=== PATIENT | male | born 1950 | race Caucasian/White ===

== ENCOUNTER → 2016-12-24 | Outpatient (CLI) | payer MEDICARE, OTHER ==
[~2016-12-24] MED LIST: COLACE100 MG PO; HYDRODIURIL25 MG PO; MIRALAX17 GM PO; RIVASTIGMINE1 EAC1 TRANS; SEROQUEL50 MG PO; SINEMET 25/1001 TAB PO; SYMMETREL 100M100 MG PO; TRIAMCINOLONE L60 ML TOP
== END | disposition disaster alternative care site (69) ==
LOC: GRAD 12:46
DX: F02.80 Dementia in other diseases classified elsewhere, unspecified severity, without behavioral disturbance, psychotic disturbance, mood disturbance, and anxiety (principal); G20 Parkinson's disease; R41.0 Disorientation, unspecified; R26.81 Unsteadiness on feet

== ENCOUNTER → 2016-12-24 | Outpatient (CLI) | payer MEDICARE, BC ==
[2016-12-24 12:51] LABS: BASOPHIL # 0.1 K/uL (0.0-0.2); BASOPHIL % 0.4 %; EOSINOPHIL # 0.5 K/uL (0.0-0.5); EOSINOPHIL % 3.7 %; HEMATOCRIT 36.7 % (37.0-53.0); HEMOGLOBIN 12.7 g/dL (11.0-16.0); IMMATURE GRANULOCYTE # 0.1 K/uL (0.0-0.3); IMMATURE GRANULOCYTE % 0.8 %; LYMPHOCYTE # 1.5 K/uL (0.8-4.0); LYMPHOCYTE % 10.1 %; MCH 32.9 pg (27.0-34.0); MCHC 34.6 gm/dL (32.0-36.5); MCV 95.1 fl (83.0-98.0); MONOCYTE # 1.7 K/uL (0.0-1.0); MONOCYTE % 11.5 %; MPV 9.6 fl (9.4-12.4); NEUTROPHIL # (ANC) 10.8 K/uL (1.4-9.0); NEUTROPHIL % 73.5 %; NRBC % 0 /100WBC (0-0.00); PLATELET COUNT 386 K/uL (150-450); RBC 3.86 M/uL (3.50-5.50); RDW-CV 13.3 % (11.9-14.6); WBC 14.6 K/uL (4.0-11.0)
[2016-12-24 12:55] LABS: BILIRUBIN URINE NEGATIVE (NEGATIVE); BLOOD URINE 25 /UL (NEGATIVE); GLUCOSE URINE NEGATIVE (NEGATIVE); KETONE URINE 5 mg/dL (NEGATIVE); LEUKOCYTES URINE NEGATIVE /UL (NEGATIVE); NITRITE URINE NEGATIVE (NEGATIVE); PROTEIN URINE 30 mg/dL (NEGATIVE); UROBILINOGEN URINE 1 mg/dL (NORMAL)
[2016-12-24 13:03] LABS: COLOR URINE YELLOW (YELLOW); TURBIDITY URINE CLEAR (CLEAR)
[2016-12-24 13:09] LABS: BACTERIA URINE NEGATIVE (NEGATIVE); MUCUS URINE 1+ (NEGATIVE); RBC URINE RARE #/HPF (NEGATIVE); WBC URINE 0-2 #/HPF (NEGATIVE)
[2016-12-24 13:25] LABS: ALBUMIN 3.1 gm/dL (3.5-5.0); ANION GAP 13.2 (10.0-19.0); CALCIUM 8.7 mg/dL (8.5-10.5); CREATININE 1.2 mg/dL (0.6-1.3); POTASSIUM 3.2 mMol/L (3.7-5.1); TOTAL BILIRUBIN 0.5 mg/dL (0.0-1.5); TOTAL PROTEIN 8.1 g/dL (6.0-8.4)
== END | disposition disaster alternative care site (69) ==
LOC: LELM 12:23
PROVIDERS: Family Medicine
DX: J81.1 Chronic pulmonary edema (principal); R06.2 Wheezing; E03.9 Hypothyroidism, unspecified

== ENCOUNTER → 2016-12-25 | Outpatient (CLI) | payer MEDICARE, OTHER | END | disposition disaster alternative care site (69) | LOC: GRAD 10:10 | DX: R09.89 Other specified symptoms and signs involving the circulatory and respiratory systems (principal); R06.2 Wheezing; R91.8 Other nonspecific abnormal finding of lung field; J90 Pleural effusion, not elsewhere classified ==

== ENCOUNTER 2016-12-31 13:33 | Observation (INO) | payer MEDICARE, OTHER ==
[~2016-12-31] VITALS: Ht 182.9 cm; Wt 99.2 kg
--- NOTE | ~2016-12-31 | CON ---
PATIENT'S NAME: GREG DAILEY [facility] AGE: 66 Y [address] ROOM: [id number] [place], [place] [address] LOCATION: GPCU ADMIT DATE: 12/31/2016 Consultation DISCHARGE DATE: 01/07/2017 FAMILY PHYSICIAN: Domenic Ojeda MD ATTENDING PHYSICIAN: Domenic Ojeda DATE OF CONSULTATION: 01/03/2017 REFERRING PHYSICIAN: Domenic Ojeda MD LOCATION: U, room [facility]. CHIEF COMPLAINT: Palliative care referral to assist with hospice referral. HISTORY OF PRESENT ILLNESS: The patient is a 66-year-old male who was admitted with a right pleural effusion, status post thoracentesis. Apparently, over the last 5 years or so, the patient has been diagnosed with a Parkinson-type neurological disorder with dementia which has been fairly progressive to the point where now the family has to hire in-home caregivers to help with his cares. The patient is having frequent falls at home, up to 10 a day. Apparently, approximately 2 weeks ago, the patient's family called their primary care provider and reported the patient had been getting very short of breath. At that point, he presented to the office and did undergo a CT scan which showed pleural effusion as well as a right lung mass. The patient was seen by Dr. Andersen. He did undergo a thoracentesis on an outpatient basis with 2 L of dark, reddish-brown fluid removed which helped the patient with his symptoms, though within 48 hours, the patient began to experience increasing shortness of breath again, and thus, presented to the emergency room. The patient did undergo a CT-guided biopsy on January 02 with pathology still pending. Given his progressive Parkinson disease, Palliative Care has been consulted to assist with hospice information and referral process. PREVIOUS OPERATIONS: 1. Eardrum surgery. 2. Cataracts. 3. Appendectomy. PAST MEDICAL HISTORY: 1. Coronary artery disease. 2. Parkinson disease with dementia. SOCIAL HISTORY: The patient smoked 1 to 2 packs a day for 15 years. He quit over 20 years PATIENT'S NAME: GREG DAILEY [facility] AGE: 66 Y [address] ROOM: [id number] [place], [place] [address] LOCATION: GPCU ADMIT DATE: 12/31/2016 Consultation DISCHARGE DATE: 01/07/2017 FAMILY PHYSICIAN: Domenic Ojeda MD ATTENDING PHYSICIAN: Domenic Ojeda. MEDICATIONS: Home medication list includes: 1. Amantadine 100 mg daily. 2. Sinemet 25/100 one tablet 4 times a day. 3. Colace 200 mg daily. 4. Hydrochlorothiazide 25 mg daily. 5. MiraLAX half a pack every 5 days. 6. Seroquel 50 mg at bedtime. 7. Exelon Patch 9.5 mg daily. 8. Triamcinolone cream as needed. ALLERGIES: NO KNOWN ALLERGIES. FAMILY HISTORY: His father of leukemia, and his mother of lung cancer. REVIEW OF SYSTEMS: Obtained primarily from review of chart and discussion with family as the patient is not able to fully verbalize. GENERAL: Reports his appetite has been fair, though he does need feeding. Has had weight loss, but they are unable to quantify. No recent fever, chills, or night sweats. Does spend more periods sleeping during the day. HEENT: No changes in vision or hearing. No complaints of headache. RESPIRATORY: Positive for a loose, harsh cough. Has had increasing complaints of shortness of breath that does seem to have improved significantly since thoracentesis. Does cough quite a bit with meals. CARDIOVASCULAR: No chest pain. Does have generalized edema. GASTROINTESTINAL: No nausea, vomiting, or diarrhea. Does have chronic constipation. No blood in his stools. Does not have any complaints of difficulties chewing or swallowing. GENITOURINARY: He is incontinent at times. Voids in small amounts. MUSCULOSKELETAL: Denies any pain. Has had multiple recent falls, up to sometimes 10 falls a day with increasing weakness. Had been ambulatory before this hospital stay, but required significant amounts of help from his family. NEUROLOGICAL: Has a lot of muscle rigidity at home. No seizures. INTEGUMENTARY: No rashes or open areas. HEMATOLOGIC: No new bruising or bleeding. PSYCHIATRIC: Does have restlessness and can agitated, especially at night. PHYSICAL EXAMINATION: VITAL SIGNS: Blood pressure 156/82, heart rate 77, temperature 98.3, respirations 24, and O2 saturation is 95% on room air. PATIENT'S NAME: GREG DAILEY [facility] AGE: 66 Y [address] ROOM: [place] [address] LOCATION: GPCU ADMIT DATE: 12/31/2016 Consultation DISCHARGE DATE: 01/07/2017 FAMILY PHYSICIAN: Domenic Ojeda MD ATTENDING PHYSICIAN: Domenic Ojeda GENERAL: An alert, elderly, white male who appears older than his age of 66. Does not appear to be in any acute distress. His speech is mostly nonsensical. He does give good eye contact and attempt to answer a few questions. HEENT: Normocephalic and atraumatic. Pupils are equal and reactive to light. Sclerae are anicteric. Conjunctivae are pink. Tongue and mucous membranes are moist and pink. CARDIOVASCULAR: Heart tones are regular rate and rhythm. I am not able to note any murmur. RESPIRATORY: Respirations are nonlabored. He does have wheezes, left greater than right, diminished on the right. GASTROINTESTINAL: Abdomen is soft and nontender. Bowel sounds are present. MUSCULOSKELETAL: No significant joint deformities. Peripheral pulses are 1+ bilaterally. There is no clubbing or cyanosis. Does have generalized edema. SKIN: Warm and dry. No unusual lesions or rashes. I did not examine his backside. NEUROLOGICAL: Grossly intact. Does have muscle rigidity. IMPRESSION AND PLAN: 1. Parkinson disease with dementia. He has had a fairly rapid decline with this. He is quite restless, especially at nighttime. Do wonder if maybe we need to increase the Seroquel some to either 75 at bedtime or even 25 at 2 p.m. and 50 at bedtime. I am going to see if this helps with some of the nighttime agitation. 2. Code status: The patient is a do not resuscitate/do not intubate. Does not have advance directive on the chart. I met with the patient's family, introduced the role of palliative care, and provided education to them about hospice services and Medicare benefits as requested by MD. At that point, family reports to me that the plan is to go with hospice services, but they are hoping that they will be able to get him into a care home as it is getting very difficult for them to manage at home. Did discuss with them that it may be difficult to find care home placement given his restlessness and care refusal. Thus, did also discuss what hospice would be like if they did end up having to take him home with paid caregivers. Did update Care Management on my discussion with the family, and they will continue to work on care home placement here in [place]. I did also make a referral to [facility] per family's request. Answered their questions. They denied any fears or concerns. No spiritual needs. Total visit was 30 minutes, greater than 50% of this time was spent providing education and counseling. Thank you for allowing me to assist this patient and family. PATIENT'S NAME: GREG DAILEY [facility] AGE: 66 Y [address] ROOM: [place] [address] LOCATION: GPCU ADMIT DATE: 12/31/2016 Consultation DISCHARGE DATE: 01/07/2017 FAMILY PHYSICIAN: Domenic Ojeda MD ATTENDING PHYSICIAN: Domenic Ojeda NAYELI BERUMEN, [employer] MD DLS/modl /[id number] CC: Domenic Ojeda MD d: 01/07/17 1157 t: 01/20/17 0856, CONSULTATION REPORT
--- NOTE | ~2016-12-31 | DS ---
PATIENT'S NAME: GREG DAILEY [facility] AGE: 66 Y [address] ROOM: [id number] [place], [place] [address] LOCATION: GPCU ADMIT DATE: 12/31/2016 Discharge Summary DISCHARGE DATE: 01/07/2017 FAMILY PHYSICIAN: Domenic Ojeda MD ATTENDING PHYSICIAN: Domenic Ojeda CORRECTED REPORT: ACCOUNT NUMBER. 01/17/2017 - BC. HOSPITAL COURSE: Greg Dailey has had a difficult time this past couple of weeks. It appeared that his dementia and parkinsonism was rapidly in decline and then it seemed as if a couple weeks ago he hit a wall and had difficulties with getting around, shortness of breath, even more instability on his feet than normal. So, on visit with Greg and then we did some films and studies and we were concerned that we found a pleural effusion on a chest x-ray and later CT scans. So, these things were evaluated by Dr. Andersen who performed a thoracentesis prior to his admission on the 31 of December I think, and I think the thoracentesis was performed by Dr. Andersen, I believe the before and fluid was sent for studies to see whether or not there was any signs of infection and/or any possibility of tumor involvement. The patient's family called me on Friday and said that they were worried about him again because he was having more dyspnea and almost impossible to move around and in general did not do not feel well. I suggest we take him to the emergency room because my feeling was that we needed to evaluate his chest status again, see whether or not he had more fluid that needed to be removed. So, he was taken to the ER by his family where a repeat CT scan or chest x-ray was done and did show an increasing pleural effusion again. At Dr. Healy's suggestion in the ER, we had Dr. Dolan our new design lead see him and she felt to that there was increase in fluid and that possibly the fluid would need another thoracentesis, but also we should evaluate this area further with MRI and CT scan, which was done and our radiologist felt that there certainly was increase in pleural fluid again and there were some concerns about whether or not the patient had a neoplastic tumor. So, naturally the patient was admitted to the hospital and supported with IV fluids as needed, relief from the pain and discomfort, and tried to increase his nutritional status. Dr. Dolan performed a thoracentesis and removed, I believe, 1500 mL of once again brownish red colored fluid and that did provide a little bit of help for Greg, but continued to have some discomfort and it was obvious that he was failing. He was not breathing well and not able to the eat, not communicating, very difficult for him to talk and difficult for him to express himself, and obviously not doing well. When we got the repeat CT scans and MRI. A few chest CT scans, I believe, they were very concerned about the possibility of neoplastic disease. So, Dr. Heller was called upon to do a needle aspiration of one of the masses and we did find that the patient had a lung cancer, which I believe, turned out to be small cell lung cancer. I discussed this finding with the family and Dr. Dolan who suggested that we proceed and stage the cancer and I told the family that was my feeling that considering his downward spiral with his parkinsonism and dementia that I PATIENT'S NAME: GREG DAILEY [facility] AGE: 66 Y [address] ROOM: [id number] [place] [id number] LOCATION: GPCU ADMIT DATE: 12/31/2016 Discharge Summary DISCHARGE DATE: 01/07/2017 FAMILY PHYSICIAN: Domenic Ojeda MD ATTENDING PHYSICIAN: Domenic Ojeda cannot imagine that they would want to consider any one of the treatment modalities, surgery, radiation, or chemotherapy with the situation that Greg was in and the family agreed completely, so that there was no further evaluation of the tumor or staging of the tumor. The patient was in the hospital for 5 or 6 days. Then, we tried to find a placement for him. It was very difficult to do so because of his difficulties with motion and communication and it was finally decided that he would go home with the help of hospice. At that time, I was going to be absent for the last day or two of his hospitalization and Dr. Andersen had returned, so I visited with Dr. Andersen about our decision to not proceed with a cancer workup and perhaps sending the patient home on hospice. Dr. Andersen concurred with this. The only question at that time was whether or not a chest tube would be placed to drain the ongoing pleural effusion fluid collection and the family was very concerned about whether or not Greg was going to remove this tube himself because he had been very irritable in the hospital and often times trying to remove IVs or crawl out of bed even when he was unable to stand and move about on his own. So for this reason, the patient is being transferred to homeward at this time with the help of the hospice people. We are going to be very actively taking care of him. I think the family seems to be at peace with this particular diagnosis and with the course of action with hospice comforting Greg at home when I in my own personal opinion is that this is very appropriate treatment at this time. FINAL DIAGNOSIS: 1. Long-term parkinsonism and dementia. 2. Atypical dementia recent. 3. Diagnosis of small cell cancer of the lung. 4. In general, a rapid downhill spiral in terms of his personal capabilities and function. DISPOSITION: Home with hospice care. MD ALINA ALFARO/александр /[id number] CORRECTED REPORT: ACCOUNT NUMBER. 01/17/2017 - BC. d: 01/17/17 0346 t: 01/30/17 1420, DISCHARGE SUMMARY
--- NOTE | ~2016-12-31 | HP ---
PATIENT'S NAME: GREG DAILEY [facility] AGE: 66 Y [address] ROOM: [id number] [place], [place] [address] [facility] ADMIT DATE: 12/31/2016 History & Physical DISCHARGE DATE: FAMILY PHYSICIAN: Domenic Ojeda MD ATTENDING PHYSICIAN: Domenic Ojeda DATE OF SERVICE: HISTORY OF PRESENT ILLNESS: Greg Dailey is a 66-year-old white male who resides in [place], [place] with his . He has had a very difficult course in the past 5-6 years with a disease process that was initially difficult to delineate, but finally a Dr. Oren Mcdonald, neurologist in [place], [place], decided that it was a type of parkinsonism that also had as its presenting symptoms some dementia similar to Alzheimer's. He has been extremely difficult to treat and we have all watched Greg go from being an extremely large, healthy, muscular person down to a point where it is very difficult for him to walk and so weak that oftentimes very difficult for him to talk. He needs around the clock care which has been provided by his family and caregivers that they hire, but recently in the past 2 weeks, he has seemed to decline a great deal. Two weeks ago, he could walk on his own and you could audibly understand him when he talked. If he fell to the floor as he was getting out of his chair or getting out of bed, he was able to get up on his own. Now, his son literally has to drag him when he walks, his son walks in front of him and faces him and more or less pulls him towards him. Also, the patient can no longer get off the floor by himself and his son has to lift him off the floor every time he falls. The falls are occurring at a much greater incidence, especially in the evening when he gets confused at that time and does not know where he is and gets up, falls out of bed, and then he ends up on the floor and the son has to come and pick him up. The family also noted that approximately 10 days ago he started getting very short of breath. He presented in my office with these symptoms and I felt that he needed to get CT scans, some lab work, so I sent him over to the hospital in [place] to do that, and we found that he had some pleural effusions and a possible abnormal CT scan mass present. For this reason, I sent him to Dr. Benny Andersen who removed over 2 L of dark reddish- brown fluid from the pleural space and told the family that there was even more fluid in there, but that is all he dared to remove. Dr. Andersen ordered a pathologic examination of this fluid and it was found to not contain any cancer cells that they could delineate, but certainly did show reactive-type cells to possible infection or inflammation. This was done last . Family said that of course Greg felt better right away and was able to breathe easier and perhaps get around a lot easier and they said this improved his outlook and his performance a great deal for about 48 hours and at that time, he began downhill again. They called me on Friday and said that they were aware of the fact that Dr. Andersen was out of town and that they were PATIENT'S NAME: GREG DAILEY [facility] AGE: 66 Y [address] ROOM: [id number] [place] [id number] [facility] ADMIT DATE: 12/31/2016 History & Physical DISCHARGE DATE: FAMILY PHYSICIAN: Domenic Ojeda MD ATTENDING PHYSICIAN: Domenic Ojeda worried about who might be able to help him if he needs fluid drained again. I checked on the availability of a model and pattern supervisor in [place] and found that there was a Dr. Dolan who was filling in for the model and pattern supervisor at [facility] and that she would be available during the week. I received a call again today from the family and they said that Greg was once again very short of breath, more confused than normal, having trouble talking, and they were quite concerned about whether or not he needed to have more fluid removed from his lungs. After hearing this from the family, I called Dr. Dolan and explained to her the situation and she felt that she would be more than happy to see the patient, but she wanted him more or less I evaluated before she saw him, so I said how about I send him to the emergency room and we will get necessary chest x-ray, scans, or whatever and then she could visit with him there and she agreed. So Greg went to the emergency room and chest x-ray and CT scan were ordered and once again they felt that we were dealing with increased pleural fluid. Dr. Dolan then came down and talked to Greg and his family and explained to them she thought it was in his best interest to be admitted to the hospital to do a series of CT scans and perhaps remove fluid again and/or thoracentesis and/or perhaps a pleural biopsy or whatever seemed to be most appropriate. The family agreed to this and Greg is admitted at this time for observation. PAST MEDICAL HISTORY AND REVIEW OF SYSTEMS: I have taken care of Greg for I would say about 15 years and during that time, he was an extremely healthy person up until this dementia and parkinsonism disease set in, and of course since then, there has been a rather rapid deterioration and it has certainly been a very sad situation for all those involved. 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 Of course, the disease process continues to deteriorate. His has been an absolute bhanu and been there at home and they have some physical therapy help. They have also had some people in and out of the house, but basically his , Lilli, taking care of him at home. At this time, with the increased falls and her inability to help Greg get up, Greg's son, Sher, has also come home, so that he would be there to help Prashant when Greg falls because Lilli is unable to enable Greg to approach an upright position once he falls, so Sher is there. I do not know whether he is on leave from his job or taking vacation or whatever, but he is there to help his dad. MEDICATIONS: Per the chart. I recognize his carbidopa levodopa, but he is on several other specialty medicines and several stool softeners and bowel preparations to avoid the constipation and comes with parkinsonism and medication. I am not PATIENT'S NAME: GREG DAILEY [facility] AGE: 66 Y [address] ROOM: [place] [address] [facility] ADMIT DATE: 12/31/2016 History & Physical DISCHARGE DATE: FAMILY PHYSICIAN: Domenic Ojeda MD ATTENDING PHYSICIAN: Domenic Ojeda familiar with some of the medications he is on, but Dr. Mcdonald sees Greg on a regular basis and seems to help Greg more than anybody else that Greg was able to engage. PHYSICAL EXAMINATION: GENERAL: Greg is still a large man, being over 6 feet tall, although now stooped. I am sure he weighs in excess of 240 or 250 pounds and actually he has lost some of his extensive musculature, but you can still see the frame that was once there. He has kind of down drawn look now and the head tilted slightly forward. He has a number of abrasions and small lacerations above his head, almost an acne type appearance also. He has a sparse hair distribution with a just few white hairs. His eyes have rather extensive lid sag. He at this time cannot get out of the chair by himself and cannot support himself. Has to have his son there to stand erect and move. He certainly has all the rigidity that goes along with the parkinsonism. He is also very rigid in his motions, especially with his neck and his torso. He is slow to move all extremities. HEENT: Eyes: Extraocular muscles are intact. Pupils do react. Nose: Nasal mucosa healthy pink in appearance. Posterior pharynx is dry. Tympanic membranes viewed through unobstructed ear canal. NECK: Carotids, no bruits could be auscultated, it is very difficult to get a stethoscope in the appropriate place. The patient appeared to have no masses in the anterior cervical area. LUNGS: I did hear some breath sounds. The other physicians had noticed they thought there was decrease on the right side, I am not for sure if I can tell a whole lot of difference between the right and the left. The upper air cunningham did appear to have excursion and exchange. HEART: Heart sounds were regularly regular, free of murmurs, rate was maybe 70. No skipped beats or friction rubs were noted. ABDOMEN: Abdomen was soft. Bowel sounds were present. Inguinal region was not observed. EXTREMITIES: His extremities, I feel like his only his hands were quite cool. On inspection of his feet, his feet were nice and warm. His says that this is a chronic problem for him with cold hands. During my visit this evening, his family happened to walk in, Sehr and his , Prashant, and right before they did, when I walked through the door, he instantly very articulately stated that "you cannot believe anything this doctor says because he got his license out of a box of Band-Aids." It was very plain, which made me feel good because of course we are very good friends and I think that that is the only thing that I heard him say in the last 2 weeks that you could really understand, so it made me feel good that he recognized me and that his sense of humor is still intact. The rest of the visit is extremely difficult because it seems like the first word comes out reasonably well and then after that it is like he is trying to make a sound and it kind PATIENT'S NAME: GREG DAILEY [facility] AGE: 66 Y [address] ROOM: [place] [address] LOCATION: [facility] ADMIT DATE: 12/31/2016 History & Physical DISCHARGE DATE: FAMILY PHYSICIAN: Domenic Ojeda MD ATTENDING PHYSICIAN: Domenic Ojeda of comes out and it kind of does not, he is kind of blowing against pursed lips, and he has a very hard time and occasionally gets 2 or 3 or 4 words out at a time, and I have to be honest that my hearing is such that I have a very difficult time understanding anything he is trying to say. In most cases I will ask someone else in the room and usually they say they are unable to hear what he is saying too. IMPRESSION: At this time, of course, we have this discouraging pleural fluid that has evidently come back very rapidly and whether or not it is from infectious process and inflammatory process or sadly from the cancerous process is undiagnosed at this time. Here again, Dr. Dolan is going to try to evaluate this during this hospitalization. Then of course, we have the parkinsonism with the dementia condition that makes it very difficult. He is on a lot of medications that have serious side affects to them. Apparently has had some memory loss, some speech problems, extreme weakness of his extremities, extreme rigidity, obvious abrasions about his legs and arms and head from falling, some confusion, some shortness of breath from time to time, although, I do not think that he has the same discomfort or dyspnea today that he did when I saw him last week. We will proceed forward with an appropriate evaluation and see if we can figure out why and where we have this fluid. I talked to the family about the fact that of course it could be a cancerous process, they stated to me that he did smoke for a number of years, but quit 10-[address] Dolan has told the family and the patient that she has no intentions of keeping him more than maybe through tomorrow as long as he is stable and of course does not need a chest tube. So, we will proceed forward with a little bit of IV fluids just to keep open. I think he is probably dehydrated and I am very concerned about pushing any fluids because I do not want to give him any more incentive to gather any more pleural fluid. We will continue all his home medicines the same way he has been on them because it seems like he has a great deal of difficulty with any medicine that is added or new and I do not want to take a chance on some kind of reaction or a setback at this time. His nutrition will be addressed appropriately at the right time. At this time, I felt that clear liquids is probably the best way to go until we get the thoracentesis or tube placement or whatever procedure is going to take place tomorrow. I do not think Greg is in any great danger at this time, but it is obvious that his disease process is moving rapidly and he certainly has had a difficult time lately. MD ALINA ALFARO/normal PATIENT'S NAME: GREG DAILEY [facility] AGE: 66 Y [address] ROOM: [place] [address] [facility] ADMIT DATE: 12/31/2016 History & Physical DISCHARGE DATE: FAMILY PHYSICIAN: Domenic Ojeda MD ATTENDING PHYSICIAN: Domenic Ojeda /[id number] D: [id number] HISTORY & PHYSICAL
--- NOTE | ~2016-12-31 | CON ---
PATIENT'S NAME: GREG DAILEY [facility] AGE: 66 Y [address] ROOM: [place] [address] LOCATION: [facility] ADMIT DATE: 12/31/2016 Consultation DISCHARGE DATE: FAMILY PHYSICIAN: Domenic Ojeda MD ATTENDING PHYSICIAN: Domenic Ojeda DATE OF CONSULTATION: 12/31/2016 REASON FOR CONSULTATION: Shortness of breath, right-sided pleural effusion. HISTORY OF PRESENT ILLNESS: A 66-year-old male with history of Parkinson disease and coronary artery disease who was recently evaluated at the [facility] for shortness of breath and fatigue for last couple of weeks and had a CT scan of chest done on 12/25/2016 which showed round soft tissue mass in the anterior right middle lobe measuring 2.7 x 3.4 cm and appeared to involve the right anterior chest wall. A smaller nodule was seen at the right upper lung measuring up to 14 mm. There were emphysematous changes in the right upper lobe and the CT also showed presence of moderate to severe right-sided pleural effusion. He had undergone thoracentesis on 12/26 with the removal of 2 liters hemorrhagic pleural fluid which was sent for analysis and he was discharged to home. For the last couple of weeks, he was noticed to be less ambulatory by the family and was also found to have shortness of breath for which they decided to bring him for further evaluation to ED today. They have not noticed any fever, excessive expectoration, hemoptysis. They have noticed mild wheezing on and off. He has not received any antibiotic therapy over the last couple of months. Bedside ultrasound revealed right-sided pleural effusion without any septations or loculations indicating simple pleural effusion. Review of previous pleural fluid study showed pH was 7.2, LDH was 388, total protein was 4.8 g/dL indicative of exudative effusion and the test for malignant cells was negative. Most of the history was obtained from the patient's family, his , and his son since he is minimally verbal. REVIEW OF SYSTEMS: RESPIRATORY: Positive for shortness of breath, wheezing. A 10-point review of system is done and the pertinent findings are mentioned in the HPI. PATIENT'S NAME: GREG DAILEY [facility] AGE: 66 Y [address] ROOM: [place] [address] LOCATION: [facility] ADMIT DATE: 12/31/2016 Consultation DISCHARGE DATE: FAMILY PHYSICIAN: Domenic Ojeda MD ATTENDING PHYSICIAN: Domenic Ojeda PHYSICAL EXAMINATION: GENERAL: The patient is sitting on bed saturating 97% on room air without any apparent distress. CLIENT RENEWAL SPECIALIST: Awake and alert, but not oriented to time and person and place. HEENT: No abnormalities noted. CHEST: Air entry is reduced in the right lower lobe. CARDIOVASCULAR: S1, S2 regular. ABDOMEN: Soft, nontender. Bowel sounds positive. EXTREMITIES: No edema. LABORATORY DATA: WBC 13.8, hemoglobin 11.9, hematocrit 34.5, platelets 417. Chemistry: Sodium 139, potassium 3.7, chloride 103, bicarb 25, BUN 24, creatinine 1.1. Coagulation studies: PTT 29, PT 10.6, INR 1.01. PAST MEDICAL HISTORY: Parkinson disease, coronary artery disease. PAST SURGICAL HISTORY: Appendectomy and history of stenting as per previous medical record. SOCIAL HISTORY: Smoked for 15 years 1 to 2 packs per day. Quit 20 years ago as per the family. IMAGING STUDIES: Chest x-ray showed moderate right-sided pleural effusion. ASSESSMENT AND PLAN: Acute worsening shortness of breath. Could be related to worsening right-sided pleural effusion. No imaging available after the thoracentesis which was done 4 days prior, 2 liters of hemorrhagic fluid was removed on 12/26/2016. Fluid analysis was suggestive of exudative pleural effusion without any evidence of malignant cells, but the differentials and count on the pleural fluid is not available yet. Bedside ultrasound showed right-sided pleural effusion without any loculations or septations. We will get a CT pulmonary angio to rule out pulmonary emboli as a contributing factor for his shortness of breath. He was found to have a 2.7 x 3.4 soft tissue mass lesion in the anterior right middle lobe involving the anterior chest wall along with the smaller nodule measuring up to 14 mm in the PATIENT'S NAME: GREG DAILEY [facility] AGE: 66 Y [address] ROOM: [id number] [place], [place] [address] LOCATION: [facility] ADMIT DATE: 12/31/2016 Consultation DISCHARGE DATE: FAMILY PHYSICIAN: Domenic Ojeda MD ATTENDING PHYSICIAN: Domenic Ojeda right upper lung concerning for neoplastic process. He was planned to get outpatient biopsy for this lung nodule after the pleural fluid analysis was available. We will follow up the report of the CT PA and plan for a repeat thoracentesis for cytologic analysis of the fluid for malignant cells. We will plan for the thoracentesis tomorrow. If the repeat chest x-ray is stable post thoracentesis and the patient is clinically stable, we will plan for discharge tomorrow. MD NIA ESTEVES/александр /[id number] d: 12/31/16 2339 t: 01/09/17 1613, CONSULTATION REPORT
--- NOTE | ~2016-12-31 | OR ---
PATIENT'S NAME: GREG DAILEY [facility] AGE: 66 Y [address] ROOM: [address] [address] LOCATION: [facility] ADMIT DATE: 12/31/2016 OR/Procedure Report DISCHARGE DATE: FAMILY PHYSICIAN: Domenic Ojeda MD ATTENDING PHYSICIAN: Domenic Ojeda SURGEON: Anahi Mendieta MD ADVERTISING AGENCY MANAGER: DATE OF PROCEDURE: 01/01/2017 PROCEDURE: Right-sided thoracentesis. INDICATIONS: Dyspnea. PROCEDURE DETAILS: After obtaining consent from the patient's family, ultrasound-guided right-sided thoracentesis was done under strict aseptic precaution with removal of 1500 mL of hemorrhagic pleural fluid. After prepping the skin with ChloraPrep, the skin was anesthetized with 1% lidocaine and a finder needle was used to localize the fluid in the pleural space. A small incision was made with a blade and a [id number]-B-Crvdtnna needle was introduced to the pleural space with removal of fluid. The patient tolerated the procedure well. No immediate complications noted. Postprocedure chest x- ray was ordered which is pending at the time of this note. FINDIN mL of hemorrhagic fluid was removed, which would be sent for appropriate studies including cell count and differential, chemistry, and cytology for analysis of malignant cells. ANAHI MENDIETA MD MG/modl /[id number] d: 01/01/172233 t: 01/09/17 1616, OPERATIVE SUMMARY
--- NOTE | ~2016-12-31 | ER ---
PATIENT'S NAME: GREG DAILEY [facility] AGE: 66 Y [address] ROOM: [place] [address] LOCATION: [facility] ADMIT DATE: 12/31/2016 ER/Outpatient Report DISCHARGE DATE: FAMILY PHYSICIAN: Domenic Ojeda MD ATTENDING PHYSICIAN: Domenic Ojeda CHIEF COMPLAINT: Shortness of breath. HISTORY OF PRESENT ILLNESS: Mr. Dailey presents at the direction of his primary care provider Dr. Ojeda from [place]. 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 It was drained on I believe Friday. He began to have more shortness of breath and thus the family contacted Dr. Ojeda. He referred them here. Dr. Andersen, women's lacrosse coach, did a procedure on Friday, but I cannot find results for those right now. It is unclear what is going on as there was some question about possible tumor or malignancy associated with this. The patient states that he feels okay, but the family notes that he breathes very difficult at night. No obvious other abnormalities present and no reports of chest pain. PAST MEDICAL HISTORY,: As documented on the record and have been reviewed by me. SOCIAL HISTORY: As documented on the record and have been reviewed by me. MEDICATIONS: As documented on the record and have been reviewed by me. ALLERGIES: DOCUMENTED ON THE RECORD AND HAVE BEEN REVIEWED BY ME. REVIEW OF SYSTEMS: All systems reviewed and negative except as noted in the HPI. PHYSICAL EXAMINATION: VITAL SIGNS: Blood pressure 121/71, pulse 78, respiratory rate 18, temperature 98.1, SpO2 is 96% on room air. GENERAL: Age-appropriate male. Frail appearance. No obvious pain or distress. NEUROLOGIC: The patient is awake. He is alert. He answers commands appropriately, but is very slow with his verbal responses. He has a very shuffling gait. He is able to move all extremities but does appear to have some contractures of the lower extremities versus very tight muscles of the PATIENT'S NAME: GREG DAILEY [facility] AGE: 66 Y [address] ROOM: [place] [address] LOCATION: [facility] ADMIT DATE: 12/31/2016 ER/Outpatient Report DISCHARGE DATE: FAMILY PHYSICIAN: Domenic Ojeda MD ATTENDING PHYSICIAN: Domenic Ojeda posterior chain. HEENT: Normocephalic, atraumatic. Eyes are PERRL. Oropharynx clear. NECK: Supple. Trachea is midline. CHEST: Heart is regular rate and rhythm. No murmurs. LUNGS: Difficult to examine, but no obvious rhonchi, wheezes, or rales. There is diminished lung sounds on the right side towards the base. BACK: Otherwise normal to inspection and palpation. EXTREMITIES: Warm and well perfused. No obvious edema. SKIN: Without erythema or other rashes. LABORATORY DATA AND X-RAYS: Chest x-ray reveals a large right-sided pleural effusion, appears roughly similar to recent CT scan. No clear changes; however, there supposedly are some thoracentesis. Labs: Electrolytes without abnormality. Renal functions appropriately. LFTs grossly unremarkable. Troponin is undetectable. White count 13.8, 9.6 neutrophils, 1.5 monos, 0.8 eosinophils and INR is 1. Serum lactate is 2. Procalcitonin is undetectable. EKG reveals sinus rhythm, ventricular rate of 70 with otherwise normal intervals and left axis deviation. Pulmonology team was able to secure some other labs from path service. IMPRESSION: Right-sided pleural effusion, suspect acute on chronic, with shortness of breath. EMERGENCY DEPARTMENT COURSE: The patient was seen evaluated as above. It was very helpful to have Dr. Ojeda to call ahead. The patient was seen by Dr. Dolan, women's lacrosse coach, and ultimately will be admitted to the hospital for further evaluation and treatment of this recurrent pleural effusion and persistent dyspnea. All questions were answered. The patient was admitted. MD DAVID GUADALUPE/александр /[id number] d: 01/01/173 t: 01/14/17 1000, OUTPATIENT REPORT
--- NOTE | ~2016-12-31 | ECHO ---
Transthoracic Echocardiography Report (TTE) Demographics Patient Name GREG DAILEY Date of Study 01/01/2017 Patient Number [id number] Visit Number [id number] Date of 1950 Room Number G6339 Accession Number [id number] Gender Male Age 66 year(s) Referring Rusty Malone MD Carbon Sequestration Plant Operator Roxanna Mckeon RVT Physician Physician Interpreting Cecilio Tristan Biomedical Electronics Technician Physician Supervising Ordering Physician Rusty Malone MD, MD/P Nurse Stress Boiler Coverer Helper Conclusions Contractility Score Summary Normal Left Ventricular contractility was noted. Summary The estimated left ventricular ejection fraction is 50% with focal moderate inferior hypokinesia.Normal internal dimension.Mild concentric left ventricular hypertrophy with moderate RANJITH. Mild biatrial dilatation. Mild mitral annular calcification. Trivial tricuspid regurgitation by color Doppler. Pericardial effusion measuring 2.43 cm loculated posterior to RA without evidence of tamponade. The aortic root appears mildly dilated. The maximum diameter measures 3.6 cm. Procedure Type of Study TTE procedure:2D Echocardiogram. Procedure Date Date: 01/01/2017 Start: 04:36 PM Study Location: Inpatient Portable Technical Quality: Adequate visualization Indications:Shortness of breath. Appropriate Use Criteria: 9 Patient Status: Routine HR: 72 bpm BP: 109/57 mmHg M-Mode/2D Measurements LV Diastolic Dimension: 4.59 cm LV Systolic Dimension: 3.43 cm LV Septum Diastolic: 1.65 cm LV PW Diastolic: 1.23 cm AO Root Dimension: 3.1 cm Cardiac Output: 5.53 l/min AV Cusp Separation: 1.9 cm RV Diastolic Dimension: 2.92 cm LVOT: 2.2 cm LVOT VTI: 20.2 cm RV Base: 2.58 cm LV Stroke volume: 76.75 ml RV Length: 5.98 cm TAPSE: 2.23 cm TDI-S': 12.6 cm/s Doppler Measurements AV Peak Velocity: 1.37 m/s MV Peak E-Wave: 0.83 m/s AV Peak Gradient: 7.51 mmHg MV Peak A-Wave: 0.91 m/s AV Mean Gradient: 4 mmHg MV E/A Ratio: 0.91 LVOT Peak Velocity: 0.99 m/s MV P1/2t: 81 msec TR Gradient:8.29 mmHg PV Peak Velocity: 0.79 m/s PV Peak Gradient: 2.46 mmHg E' Septal Velocity: 0.08 m/s A' Septal Velocity: 0.14 m/s E' Lateral Velocity: 0.09 m/s A' Lateral Velocity: 0.18 m/s Findings Left Ventricle Mild concentric left ventricular hypertrophy with moderate RANJITH.LV internal dimensions are normal with normal EF.Mild focal moderate inferior hypokinesia. Right Ventricle Normal right ventricle structure and function. Left Atrium Mildly dilated LA. Right Atrium The right atrium is mildly dilated. Mitral Valve Mild mitral annular calcification. Aortic Valve Normal aortic valve structure and function. Tricuspid Valve Trivial tricuspid regurgitation by color Doppler. Pulmonic Valve Normal pulmonic valve structure and function. Pericardial Effusion Pericardial effusion measuring 2.43 cm localized posterior to RA without evidence of tamponade. Miscellaneous The aortic root appears mildly dilated. The maximum diameter measures 3.6 cm. Pleural Effusion No evidence of pleural effusion. Contractility Score LV regional wall motion:(0-Non visualized 1-Normal 2-Hypokinesis 3-Akinesis 4-Dyskinesis 5-Aneurysm) Signature dtt: Azalea Hernandes dtd: 01/01/17 1636 Physician Self Edit
[2016-12-31 14:29] LABS: BASOPHIL # 0.1 K/uL (0.0-0.2); BASOPHIL % 0.4 %; EOSINOPHIL # 0.8 K/uL (0.0-0.5); EOSINOPHIL % 5.8 %; HEMATOCRIT 34.5 % (37.0-53.0); HEMOGLOBIN 11.9 g/dL (11.0-16.0); IMMATURE GRANULOCYTE # 0.1 K/uL (0.0-0.3); IMMATURE GRANULOCYTE % 0.9 %; LYMPHOCYTE # 1.7 K/uL (0.8-4.0); LYMPHOCYTE % 12.5 %; MCH 33.1 pg (27.0-34.0); MCHC 34.5 gm/dL (32.0-36.5); MCV 95.8 fl (83.0-98.0); MONOCYTE # 1.5 K/uL (0.0-1.0); MONOCYTE % 10.7 %; MPV 9.6 fl (9.4-12.4); NEUTROPHIL # (ANC) 9.6 K/uL (1.4-9.0); NEUTROPHIL % 69.7 %; NRBC % 0 /100WBC (0-0.00); PLATELET COUNT 417 K/uL (150-450); RDW-CV 12.9 % (11.9-14.6); WBC 13.8 K/uL (4.0-11.0)
[2016-12-31 14:38] LABS: INR - (THERAPEUTIC) 1.01 (0.92-1.07); PROTIME 10.6 SECONDS (9.8-11.4); PTT 29 SECONDS (25-32)
[2016-12-31 14:52] LABS: ALBUMIN 2.7 gm/dL (3.5-5.0); ALK PHOS 79 IU/L (33-138); ALT 10 IU/L (12-78); ANION GAP 14.7 (10.0-19.0); AST 34 IU/L (10-40); BLOOD UREA NITROGEN 24 mg/dL (6-24); CALCIUM 8.1 mg/dL (8.5-10.5); CHLORIDE 103 mMol/L (96-110); CO2 25 mMol/L (22-32); CREATININE 1.1 mg/dL (0.6-1.3); POTASSIUM 3.7 mMol/L (3.7-5.1); SODIUM 139 mMol/L (135-145); TOTAL BILIRUBIN 0.7 mg/dL (0.0-1.5); TOTAL PROTEIN 6.9 g/dL (6.0-8.4)
[2016-12-31] MEDS ORDERED: SINEMET 25/1001 TAB PO (17:43)
[2016-12-31] MEDS ORDERED: SEROQUEL50 MG PO (17:43)
[2016-12-31] MEDS ORDERED: HYDRODIURIL25 MG PO (17:44)
[2016-12-31] MEDS ORDERED: RIVASTIGMINE1 EAC1 TRANS (17:45)
[2016-12-31] MEDS ORDERED: TRIAMCINOLONE L60 ML TOP (17:48)
[2016-12-31] MEDS ORDERED: SYMMETREL 100M100 MG PO (17:48)
[2016-12-31] MEDS ORDERED: COLACE100 MG PO ×2 (17:49)
[2016-12-31] MEDS ORDERED: MIRALAX17 GM PO (17:50)
--- NOTE | 2016-12-31 18:31 | NUR ---
PATIENT BROUGHT INTO ED BY FAMILY FOR INCREASED SOB SINCE WEEKEND. HX PARKINSONS, DEMENTIA, CAD WITH STENTS, CONSTIPATION, AND RECENT TROUBEL PAST WEEK WITH FLUID ON LUNGS. RIGHT LUNG WAS TAPPED WITH 2 LITERS REMOVED 12/27. PIV TO RIGHT WRIST SL'D. NO C/O PAIN. MULTIPLE ABRASIONS AND SCABS SCATTERED TO BLE AND UPPER EXTREMITIES. FAMILY STATES PATIENT FALLS MULTIPLE TIMES PER DAY, APPROX 10X/DAY. ULCER TO CREASE OF BUTTOCKS, NON-BLANCHABLE SKIN TO SURROUNDING AREA. DR STONE OMER TO SEE ON FLOOR FOR ORDERS
--- NOTE | 2017-01-01 05:29 | NUR ---
Significant Event: Patient alert and oriented. Forgetful at times. Inappropriate with nurses at times. Does not use call light. Yells out to the fowler. Bed alarm on at all times. SBP 150s-190s. On RA. Frequent, harsh cough. Audible wheezing. Lungs clear with cough. Diminished on Rt. side. No breathing treatments per Dr. Ojeda. Incontinent of bladder at times. History of frequent falls. Patient D/C'd right wrist PIV. New one started to left forearm with NS at TKO. Large BM this shift. Good uop. Small open sore to coccyx. Aloe Olmstead applied PRN. No labs ordered for this morning. Cooperative with all cares. Follow up: Will continue to monitor BP and respiratory status.
--- NOTE | 2017-01-01 11:52 | NUR ---
Called and spoke with patients Lilli on the phone. I introduced self and role of care management. Ray and Lilli live in [place]. She states that she, their son and staff from [facility] assist Ray with all his ADL's. She is planning on him returning home on discharge. She deneis any needs at this time. Will continue to follow.
--- NOTE | 2017-01-01 17:06 | NUR ---
Significant Event: Pt forgetful, agitated, and disoriented to place and time. VSS on RA. Heavy 2A with turns and bed changes. Q2T. Will resist and grab arms when being turned. Pt was very drowsy this morning and spit out his morning pills. Around 0830 became very agitated and threw drinks across the room. Was very agitated with staff during his bed change and cleaning him up. Slept for majority of day. Dr. Dolan performed thoracentesis and plural fluid sent to lab. Regular diet, NPO at midnight.
[2017-01-02 03:24] LABS: BASOPHIL # 0.1 K/uL (0.0-0.2); BASOPHIL % 0.6 %; EOSINOPHIL # 0.8 K/uL (0.0-0.5); EOSINOPHIL % 6.4 %; HEMOGLOBIN 11.3 g/dL (11.0-16.0); IMMATURE GRANULOCYTE # 0.1 K/uL (0.0-0.3); IMMATURE GRANULOCYTE % 0.6 %; LYMPHOCYTE # 1.7 K/uL (0.8-4.0); LYMPHOCYTE % 14.1 %; MCH 32.4 pg (27.0-34.0); MCHC 33.6 gm/dL (32.0-36.5); MCV 96.3 fl (83.0-98.0); MONOCYTE # 1.5 K/uL (0.0-1.0); MONOCYTE % 11.8 %; MPV 9.2 fl (9.4-12.4); NEUTROPHIL # (ANC) 8.2 K/uL (1.4-9.0); NEUTROPHIL % 66.5 %; NRBC % 0 /100WBC (0-0.00); PLATELET COUNT 387 K/uL (150-450); RBC 3.49 M/uL (3.50-5.50); RDW-CV 12.6 % (11.9-14.6); WBC 12.4 K/uL (4.0-11.0)
[2017-01-02 03:30] LABS: HEMATOCRIT 33.6 % (37.0-53.0)
[2017-01-02 03:38] LABS: INR - (THERAPEUTIC) 1.03 (0.92-1.07); PROTIME 10.8 SECONDS (9.8-11.4); PTT 30 SECONDS (25-32)
--- NOTE | 2017-01-02 08:01 | NUR ---
Significant Event: Patient agitated this shift. Uncooperative at times. Swung at nursing staff with incontinent cares. Calm and cooperative with family. SBP 100s-140s. All other vital signs stable. On RA. Incontinent of bladder x2 this shift. Attempted to turn Q2. Patient resistent. Slept on and off. Yelled out in fowler frequently. Tried to get out of bed x1. Bed alarms on at all times. NPO since midnight. Follow up: Biopsy today. Will continue to monitor per plan of care.
--- NOTE | 2017-01-02 08:30 | NUR ---
Received a call from Dr Ojeda this morning to discuss Christiana discharge plans. He states that his family was actually coming to see him next week to discuss placing Ray in a nursing facility. It is becoming too hard for them to care for him at home. He feels that it would be a better transition for Ray and the family if he was to go to a nursing facility from the hospital. I explained that I would speak with Venrons and son today. Will continue to follow.
--- NOTE | 2017-01-02 12:11 | NUR ---
Met with patients and son in the Hallway per their request. We discussed discharge plans. I explained the phone call I had received from Dr Ojeda this morning. They agree that it would be best to place Ray from here and not home. Lilli states she has called around and [facility] is full. She did speak with an Jadyn at [facility]. I explained that I would call and make referrals to which ever facilities they are intrested in. Lilli states that at this time [facility] is the only facility they would be willing to place Ray in. We did discuss the fact the Ray has a detention care plan. I encouraged them to check and see if it had any hayden period before it started to pay. I also explained that in order for Medicare to pay he would need to have a 3 midnight qualifying stay and be participating in therapies and progressing. Lilli verbalized understanding and stated "he's not going to get better than this so the Medicare option is out". I did tell them that Dr Ojeda is going to have the Palliative care nurse come see them regarding possible Hospice. They verbalized understanding. I called and spoke with Mireya at [facility] and they do not have any available male beds at this time. I also called and spoke with Jadyn who is covering for Maria Ines at [facility] and faxed a referral. Will wait to hear back.
--- NOTE | 2017-01-02 16:04 | NUR ---
Received call from Dr Ojeda to talk about discharge plan and his concerns pt should not go home, not safe. Reviewed Nichelle's note with him about her conversation and dc planning with earlier, and he asked me to talk with again about a further plan if [facility] isn't able to accept, looking at other facilities in [place] ([facility], [facility]) or looking out of town or if they want to take pt home with Hospice (not his first choice). I talked with patient and son outside room, let them know he will stay observation status but we need to have a safe discharge plan, but have to be working on a safe discharge plan. reports we probably didn't hear back from [facility] today because [facility] is out today (she is correct) and that they looked at [facility] and they won't accept because pt needs assistance eating (she is correct). She said okay to make referral to [facility] as well. They are concerned may not find a SNF in [place] to accept. Discussed with them they would then need to make a decision about taking him home vs looking at SNF in other communities, and that would be [facility], [facility], [facility]. hesitant to do that, son says he thinks that is what they will need to do. Instructed them to just be thinking about it in order to make a decision tomorrow about it, in the event can't find SNF in [place] to accept. Called Lindsay Jorge with [facility], yes [facility] is out, but [facility] does not have a male jail care bed either, so can't accept. Called back and let her know that, and again explained to her she needs to think about what will be safe for patient for discharge, SNF in other community vs home. They do have aobut 30 hours a week of paid caregiver that their intermodal customer service care policy pays for, and would want Hospice to admit whether he goes to SNF or home. She asks if they can make referrals to nursing homes outside [place] but then decide to take him home if they don't like where he would have to go. Told her that technically, yes, they could do that, but it is not fair to SNF to do that. She said Dr Ojeda said its hard to get a patient back into [place] SNF if out of town. Explained to her may not be able to get patient into [facility] regardless so that shouldn't be a factor in the decision. She voices understanding. Would lean toward [facility] if they decide to do that as she thinks its closer than [place], told her [facility] would be a good choice. Fence Installer Foreman will followup with [facility] tomorrow and then talk with pt/son and move forward with dc plan from there. Called Dr Ojeda back and left him a voicemail with what and I talked about.
--- NOTE | 2017-01-02 16:11 | NUR ---
Significant Event: ALERT. MUMBLED SPEECH, AND DIFFICULT TO UNDERSTAND. PT. WILL BE COOPERATIVE AND THE NEXT SECOND HE BE ATTEMPTING TO HIT, BY THROWING HIS ARMS AT YOU AND PUSHING YOU BACK. AFEBRILE. HR SR IN 70'S. SBP 135-166. HAS TAKEN HIS MEDS TODAY. SATS 95% ON ROOM AIR. NO RESP. DISTRESS NOTED. RT. LUNG BX DONE VIA CT GUIDED. HAS DRESSING RT ANT. CHEST. C/D/I. Follow up: PALLATIVE HAS SEEN. CM WORKING ON PLACEMENT/ DISCHARGE. AND SON HAS BEEN PRESENT TO HELP WITH DISM. CONCERNS.
--- NOTE | 2017-01-03 04:33 | NUR ---
Significant Event: UNABLE TO ASSESS PATIENTS ORIENTATION. SPEECH REMAINS GARBLED AND DIFFICULT TO UNDERSTAND. HAS BEEN AGITATED AND RESTLESS MOST OF THE EVENING AND CONSTANTLY TRIES TO GET OUT OF BED. DID GET ORDER TO D/C IV AND IV FLUIDS DUE TO PATIENT'S REPEATED ATTEMPTS TO PULL IT OUT. FAMILY MEMBER DID COME AND HAS REMAINED AT THE PATIENT'S BEDSIDE ALL EVENING. HE HAS SLEPT FOR ABOUT 3 HOURS THIS EVENING. ALL VSS ON RA, AFEBRILE. DENIED PAIN. PALLIATIVE CARE ON BOARD, MOST LIKELY WILL BE DISCHARGED TODAY TO HOME ON HOSPICE. Follow up:
--- NOTE | 2017-01-03 12:18 | NUR ---
Called and spoke with Maria Ines at [facility] this morning. She will review referral information and let us know if they can accept. I also spoke with Dr Ojeda. Patients discahrge plans would be to [facility] with [facility]ell if they accept. If [facility] itzel not accept then Ray will go home with hospice and continue with [facility] caregivers.
--- NOTE | 2017-01-03 16:48 | NUR ---
Received a call from Maria Ines at [facility] stating they can not accept patient at this time. Due to not being able to meet his needs. I did meet with Lilli and updated her. We did discuss the options of taking marcia home with hospice or looking out of town for a facility. She does not really want him out of town but realizes that she may not be able to care for him at home. She did ask if [facility] hospice would be willing to come out to their home and do an in home assessment to see it bring Jas home with hospice would even be fesible. I did call and speak with Mirtha at [facility] and she will call and set up a time with Lilli to do the home visit. Lilli wants to talk with their son Sher and will let me know on Friday what they have decided. I called and updated Dr Ojeda.
--- NOTE | 2017-01-03 17:29 | NUR ---
Significant Event: PATIENT MADE NO EFFORT TO GET OUT OF BED TODAY. PATIENT WAS INCONTINENT ONCE THIS MORNING AND THEN USED BEDSIDE URINAL x3. PATIENT'S SPEECH IS GARBLED, BUT HE WAS ABLE TO LET ME KNOW WHEN HE NEEDED TO GO TO THE BATHROOM. COULD ANSWER SIMPLE YES AND NO QUESTIONS. MOTHER [facility] ASSESSED PATIENT AND WILL NOT ACCEPT HIM. DRESSING ON R) ANTERIOR CHEST IS C/D/I. LUNG SOUNDS ARE CLEAR AND DIM THROUGHOUT. PATIENT HAD FAMILY IN ROOM TO HELP WITH FEEDING THROUGHOUT DAY. PATIENT HAS EXELON PATCH PLACED ON POSTERIOR UPPER RIGHT ARM. HE TOLERATED PILLS WELL WITH PUDDING. CURRENTLY RESTING IN BED. Follow up:
--- NOTE | 2017-01-04 04:59 | NUR ---
Significant Event: NOT MUCH CHANGE FROM PRIOR SHIFTS. STILL UNABLE TO ASSESS ORIENTATIOIN. SPEECH GARBLED BUT AT TIMES CAN UNDERSTAND A WORD OR TWO. AGITATED AND RESTLESS AT TIMES. DR. OMER WROTE ORDERS FOR NO MORE CAT,PET,MRI OR BIOPSIES AT THIS TIME. HIS PERSONAL HOME CAREGIVER HAS REMIANED AT BEDSIDE THIS EVENING. Follow up: MOTHER [facility] REFUSED, WILL PROBABLY BE DISCHARGED TO HOME ON HOSPICE FRIDAY.
--- NOTE | 2017-01-04 11:32 | NUR ---
A-SCREENED D/T LOS POSSIBLE HOME WITH HOSPICE ON FRIDAY. PALLIATIVE FOLLOWING. SPEECH IS GARBLED; AGITATED AND RESTLESS AT TIMES. SMALL OA TO COCCYX. HT: 72 IN. WT: 103.8 KG (BED SCALE). BMI: 31.0 LABS REVIEWED: ALB 2.7 MEDS: SEROQUEL, PRN BOWEL MEDS, COLACE, SINEMENT CR, SYMMETREL DIET RX: REGULAR. PO INTAKE 75-100%. PT'S FAMILY HAS BEEN HELPING WITH FEEDING PT. PT/FAMILY CHOOSING A VARIETY OF FOODS AT EACH MEAL. EST NUTR NEEDS: [id number] KCALS (15-20 KCAL/KG) 83-104 GM PROTEIN (0.8-1.0 GM/KG) 1 ML FLUID/KCAL D-NOT AT NUTRITION RISK AT THIS TIME; NO NUTRITION DX IDENTIFIED I-CONTINUE W/CURRENT DIET RX M/E-ASSIST NEEDED
--- NOTE | 2017-01-04 16:39 | NUR ---
Significant Event:pt has had his home health nurse here with him today. Pt turned often and scoot up in bed. Inc. and uses urinal. Eats/drinks some today. Has harsh hacky slow cough at times. Tylenol this afternoon as pt says has pain and is restless, tries to climb out of bed. Follow up:
--- NOTE | 2017-01-05 04:58 | NUR ---
Significant Event: SHOWS NO S/S OF PAIN. RESTLESS AT TIMES. DID TRY TO CRAWL OUT OF BED X2. SON CAME AND SAT WITH HIM FOR A LITTLE WHILE UNTIL HE FELL ASLEEP. SEROQUEL WAS GIVEN CLOSER TO 2039. PT RESTED WELL UNTI ABOUT 229 AND THEN WAS RESTLESS AND THEN WENT BACK TO SLEEP. WORDS ARE STILL MUMBLED. REMAINS ON ROOM AIR. DOES APPEAR SOB AT TIMES. O2 REMAINS GREATER THAN 90%. INCONT OF URINE. VERY DIFFICULT TO TURN AT TIMES TO CHECK IF HE IS WET OR HAD A BM DUE TO HIM REFUSING OR FIGHTING THE TURN. UNCOOPERATIVE AT TIMES WITH CARES. Follow up:
--- NOTE | 2017-01-05 15:03 | NUR ---
patient resting in bed. no verbal except mumbling. did talk some with caregiver. rigid. turned q2h. incontinent. pressure ulcer to buttock-aloe applied. gauze/tegaderm to chest d/i. lungs clear diminished. ate bites when fed.
--- NOTE | 2017-01-06 05:29 | NUR ---
Significant Event: MORE COOPERATIVE TONIGHT. NOT COMBATIVE AT ALL. TOOK ALL OF HIS PILLS WITHOUT ISSUE. THEY WERE CRUSHED AND PLACED IN APPLESAUCE. HE WAS RESTLESS AT TIMES. DID NOT SLEEP WELL. SLEPT OFF AND ON. INCONT AND CONTINENT OF URINE ALL NIGHT. VERY SMALL AMOUNTS. DID NOT PULL OFF HIS TELE WIRES AT ALL. REMAINS ON ROOM AIR Follow up:
--- NOTE | 2017-01-06 11:52 | NUR ---
Spoke with Linda Palliative care nurse today. Discharge plan will be to go home with Hospice Sunday 01/07 at 1000 by ambulance. I called and set up ambulance transport with Mireya in EMS.
--- NOTE | 2017-01-06 16:24 | NUR ---
Significant Event: PT. ALERT, SLOW TO RESPOND. REPOSITIONS Q2HR IN BED. CAREGIVER IN ROOM TODAY, HELPS FEED PT. NO COMPLAINTS OF PAIN. VSS ON ROOM AIR. NO IV ACCESS. CT OF CHEST SHOWED FLUID STILL ON LUNGS, FAMILY & DR. DECIDED TO GO HOME WITH HOSPICE & NOT PLACE CHEST TUBE AT THIS POINT D/T PT. NOT REQUIRING OXYGEN & NOT IN DISTRESS. PT. WILL D/C TO HOME @ 1000 TOMORROW WITH HOSPICE. AMBULACE NEEDS SET-UP TO TAKE PT. FAMILY HERE TODAY. PT. TAKES MEDS WHOLE IN APPLESAUCE, DRINKS FINE. ALOE TO BOTTOM. Follow up: CONTINUE WITH POC.
--- NOTE | 2017-01-07 04:10 | NUR ---
Significant Event: REMAINS DISORIENTED, SPEECH GARBLED UNABLE TO UNDERSTAND. ALL VSS ON RA, AFEBRILE. TURNED Q2. HAS RESTED BETTER THAN PRIOR SHIFTS, COOPERATIVE MOST OF THE TIME WITH NO OVERT ATTEMPTS TO BE COMBATIVE. CAREGIVER AT BEDSIDE ENTIRE EVENING. Follow up: WILL BE DISCHARGED TO HOME ON HOSPICE TODAY AT 1000 VIA AMBULANCE.
--- NOTE | 2017-01-07 10:46 | NUR ---
DISCHARGE: ALERT, ORIENTATION DIFFICULT TO ASSESS D/T GARGLED SPEECH. RESTLESS AT TIMES. NO IV ACCESS. VSS. DISCHARGE INSTRUCTIONS GIVEN TO PATIENT'S SON. NO FURTHER QUESTIONS. EMS CREW HERE TO TAKE PATIENT HOME ON HOSPICE CARE. DISCHARGED @ 1792.
== END 2017-01-07 10:25 | disposition hospice, home (50) ==
LOC: GMED 13:33 → GPCU 16:44
PROVIDERS: Emergency Medicine; Internal Medicine Critical Care Medicine; ADMIT Family Medicine
PROC: 0W993ZZ Drainage of Right Pleural Cavity, Percutaneous Approach (ICD-10-PCS; 2017-01-01)
PROC: 0BBC3ZX Excision of Right Upper Lung Lobe, Percutaneous Approach, Diagnostic (ICD-10-PCS; principal; 2017-01-02)
DX: C34.11 Malignant neoplasm of upper lobe, right bronchus or lung (principal); J90 Pleural effusion, not elsewhere classified; I25.10 Atherosclerotic heart disease of native coronary artery without angina pectoris; G20 Parkinson's disease; F02.80 Dementia in other diseases classified elsewhere, unspecified severity, without behavioral disturbance, psychotic disturbance, mood disturbance, and anxiety; Z87.891 Personal history of nicotine dependence; Z90.49 Acquired absence of other specified parts of digestive tract; Z95.5 Presence of coronary angioplasty implant and graft
CPT/HCPCS: G0378; J2250; J3010; J7030; Q9967

== ENCOUNTER → 2017-01-07 | Outpatient (CLI) | payer MEDICARE, OTHER | END | disposition disaster alternative care site (69) | LOC: GAMB 10:15 | DX: R53.1 Weakness (principal) | CPT/HCPCS: A0425; A0428 ==